=== PATIENT | female | born 1985 | race African-American/Black ===

== ENCOUNTER 2017-11-10 02:09 | Emergency (ER) | payer OTHER ==
[~2017-11-10] VITALS: Ht 170.2 cm; Wt 79.4 kg
[~2017-11-10 02:09] MED LIST: DOXYCYCLINE 10100 MG PO; HYDROCODONE-APA10 ML PO; NORCO 5-325 TA1 EACH PO; SEPTRA SUSPENS100 ML PO
[2017-11-10 02:35] LABS: URINE BILIRUBIN NEGATIVE (Negative); URINE BLOOD 3+ (Negative); URINE CLARITY CLEAR; URINE COLOR YELLOW; URINE GLUCOSE-RANDOM* NEGATIVE (Negative); URINE KETONES TRACE (Negative); URINE LEUKOCYTES 1+ (Negative); URINE NITRITE NEGATIVE (Negative); URINE PROTEIN (DIPSTICK) NEGATIVE (Negative); URINE UROBILINOGEN 0.2 E.U./dl (0.2-1.0)
[2017-11-10 02:46] LABS: CREATININE 0.9 mg/dL (0.6-1.0); POTASSIUM 3.2 mmol/L (3.5-5.1)
[2017-11-10 02:48] LABS: BASOPHILS 0.5 % (0.0-2.0); EOSINOPHILS 1.1 % (0.0-3.0); HEMATOCRIT 35.1 % (37.0-47.0); HEMOGLOBIN 11.7 gm/dL (12.0-15.0); LYMPHOCYTES 23.9 % (24.0-44.0); MCH 26.5 pg (26.0-34.0); MCHC 33.4 g/dL (28.0-37.0); MCV 79.4 fL (80.0-100.0); MONOCYTES 9.1 % (1.0-8.0); PLATELET COUNT 257 thou/uL (150-400); POLYS 65.4 % (36.0-66.0); RBC 4.42 mil/uL (4.20-5.00); RDW 16.2 % (10.5-14.5); WBC 10.7 thou/uL (4.0-11.0)
[2017-11-10 02:51] LABS: CASTS None Seen /LPF (None Seen); MUCUS 0-3 Light strn/LPF (None Seen); SQUAMOUS >10 Many /LPF (0-3); URINE WBC 6-15 Few /HPF (0-5)
[2017-11-10 02:52] LABS: CRYSTALS None Seen /LPF (None Seen); URINE RBC 0-2 Rare /HPF (0-2)
[2017-11-10 02:53] LABS: WBC CLUMPS Few (None Seen)
[2017-11-10] MEDS ORDERED: KEFLEX500 M1 PO (02:59)
[2017-11-10] MEDS ORDERED: NORCO 5-325 TA1 EACH PO (02:59)
[2017-11-10] MEDS ORDERED: DIFLUCAN150 MG PO (03:26)
== END 2017-11-10 03:32 | disposition home or self-care (01) ==
LOC: ER 02:09
PROVIDERS: Emergency Medicine
DX: N39.0 Urinary tract infection, site not specified (principal); M54.9 Dorsalgia, unspecified; F17.210 Nicotine dependence, cigarettes, uncomplicated

== ENCOUNTER 2018-03-13 17:40 | Emergency (ER) | payer OTHER ==
[~2018-03-13] VITALS: Ht 167.6 cm; Wt 80.7 kg
--- NOTE | ~2018-03-13 | EKG ---
[address] [address] ELECTROCARDIOGRAM REPORT Name: EMANUELBILLIE SHRESTHA SHIV Room #: [facility]P [facility]ENTERSh[facility]la[id number] Admission: 03/13/18 Attend Phys: Discharge: 03/13/18 Date of : 83 Report #: [id number] THIS REPORT FOR: //name// [facility] ED Test Date: 2018-03-13 Test Time: 18:58:20 Pat Name: BILLIE JONES Department: Room: Gender: F Store Administrator: solitario : 1985 Requested By: Erick Jolley Order Number: [id number] MD: Emil Walton Measurements Intervals [place] Rate: 72 P: 33 OK: 160 QRS: 79 QRSD: 91 T: 61 QT: 369 QTc: 404 Interpretive Statements Sinus rhythm Early repolarization No previous ECG available for comparison Electronically Signed On 03-14-2018 7:59:51 CDT by Emil Walton [email or web address] <ELECTRONICALLY SIGNED> By: Emil Walton MD 03/14/18 [id number] MD CAROLANN Wood
[~2018-03-13 17:40] MED LIST changes: +DIFLUCAN150 MG PO; +KEFLEX500 M1 PO
[2018-03-13 18:35] LABS: URINE BILIRUBIN NEGATIVE (Negative); URINE BLOOD NEGATIVE (Negative); URINE CLARITY CLEAR; URINE COLOR YELLOW; URINE GLUCOSE-RANDOM* NEGATIVE (Negative); URINE KETONES NEGATIVE (Negative); URINE LEUKOCYTES-REFLEX NEGATIVE (Negative); URINE NITRITE-REFLEX NEGATIVE (Negative); URINE PROTEIN (DIPSTICK) NEGATIVE (Negative); URINE SPECIFIC GRAVITY 1.015 (1.005-1.035)
[2018-03-13 18:55] LABS: ABSOLUTE NEUTROPHILS 6.1 thou/uL (1.4-8.2); BASOPHILS 0.3 % (0.0-2.0); EOSINOPHILS 0.5 % (0.0-3.0); HEMATOCRIT 31.7 % (37.0-47.0); HEMOGLOBIN 10.2 gm/dL (12.0-15.0); MCH 24.6 pg (26.0-34.0); MCHC 32.3 g/dL (28.0-37.0); MCV 76.1 fL (80.0-100.0); MONOCYTES 9.2 % (1.0-8.0); PLATELET COUNT 203 thou/uL (150-400); RBC 4.17 mil/uL (4.20-5.00)
[2018-03-13 18:58] LABS: CALCIUM 8.9 mg/dL (8.5-10.1); CREATININE 0.8 mg/dL (0.6-1.0); POTASSIUM 3.8 mmol/L (3.5-5.1)
[2018-03-13 19:04] LABS: ALBUMIN 3.5 g/dL (3.4-5.0); TOTAL BILIRUBIN 0.3 mg/dL (<0.1-1.0); TOTAL PROTEIN 7.9 g/dL (6.4-8.2)
[2018-03-13] MEDS ORDERED: MOBIC15 MG PO (19:37)
[2018-03-13] MEDS ORDERED: HYDROCODONE-AP1 EAC6 PO (19:55)
[2018-03-13] MEDS ORDERED: ZOFRAN ODT4 MG PO (19:55)
[2018-03-13 20:15] VITALS: BP 80/57
== END 2018-03-13 20:16 | disposition home or self-care (01) ==
LOC: ER 17:40
PROVIDERS: Physician Assistant
DX: N83.209 Unspecified ovarian cyst, unspecified side (principal); R11.0 Nausea; F17.210 Nicotine dependence, cigarettes, uncomplicated; R42 Dizziness and giddiness; R63.0 Anorexia